=== PATIENT | female | born 1975 | race Caucasian/White ===

== ENCOUNTER 2016-09-15 20:45 | Emergency (ER) | payer OTHER ==
--- NOTE | 2016-09-15 20:53 | EDPHY ---
H & P Time Seen by Provider: 09/15/16 20:49 HPI/ROS: CHIEF COMPLAINT: Medication reaction HISTORY OF PRESENT ILLNESS: The patient is a 41-year-old female, brought in by EMS, after accidently smoking her Seroquel. The patient states she went home to smoke marijuana. She states she has picked up one of her Seroquel pills from the floor and put it in her marijuana container so her children wouldn't see it. She later smoked the marijuana which had the Seroquel in it. According to the patient's the patient is very forgetful and often scattered. He thinks this is something normal that the patient would do because she is very disorganized. Patient reports it was an accident. She denies suicidal ideation. REVIEW OF SYSTEMS: A comprehensive 10 point review of systems is otherwise negative aside from elements mentioned in the history of present illness. Past Medical/Surgical History: Depression. Insomnia. Social History: with three children. Marijuana use. 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 Physical Exam: General Appearance: Alert, anxious Eyes: Pupils equal and round, no conjunctival pallor or injection ENT, Mouth: Mucous membranes moist Neck: Normal inspection Respiratory: Lungs are clear to auscultation Cardiovascular: Regular rate and rhythm Gastrointestinal: Abdomen is soft and non-tender Neurological: A&O, nonfocal exam Skin: Warm and dry, no rash Extremities: Nontender, no pedal edema Psychiatric: Fluctuating affect Constitutional: Initial Vital Signs Temperature (C) 36.4 C 09/15/16 20:45 Heart Rate 87 09/15/16 20:45 Respiratory Rate 16 09/15/16 20:45 Blood Pressure 133/90 H 09/15/16 20:45 O2 Sat (%) 100 09/15/16 20:45 O2 Delivery Mode Room Air Allergies/Adverse Reactions: iodine [Iodine] Allergy (Verified 04/03/09 02:33) Penicillins Allergy (Verified 04/03/09 02:33) Home Medications: Medication Instructions Recorded Adderall 20 mg tab 04/03/09 Lexapro 09/15/16 Seroquel 09/15/16 Medical Decision Making ED Course/Re-evaluation: This patient presents with anxiety after smoking marijuana. It is unclear whether she actually inhaled any of the Seroquel tablet. There is no evidence of intentional self-harm or acute toxicity from Seroquel. I feel that she is safe and stable for discharge home. Differential Diagnosis: Includes though not limited to intentional overdose, Seroquel toxicity, primary anxiety. - Data Points Medications Given: Discontinued Medications Acetaminophen (Tylenol) 1,000 mg PO EDNOW ONE Stop: 09/15/16 21:25 Last Admin: 09/15/16 21:24 Dose: 1,000 mg Departure - Departure Disposition: Home, Routine, Self-Care Clinical Impression: Marijuana use Condition: Good Instructions: Medicinal Use of Cannabis (ED) Additional Instructions: Return to the Emergency Department with new or worsening symptoms. You have been referred to a primary care physician below, followup as necessary. Referrals: Rebecca Mckeon MD [Medical Doctor] - As per Instructions (Primary Care Physician) Report Scribed for: Flores Bowens Report Scribed by: Samantha Andres Date of Report: 09/15/16 Time of Report: 20:52 Physician Review and Approval Statement: 09/15/16 20:52 Portions of this note were transcribed by a medical csr. I personally performed the history, physical exam, and medical decision-making; and confirmed the accuracy of the information in the transcribed note.
[2016-09-15 21:10] VITALS: RESP 16; TEMP 97.5
[2016-09-15] MEDS ORDERED: ACETAMINOPHEN 500 MG TAB ONE (21:21)
[2016-09-15] MEDS ORDERED: ACETAMINOPHEN 500 MG TAB PO ONE (21:24)
[2016-09-15 22:21] VITALS: BP 137/106; PULSE 90; O2SAT 96
== END 2016-09-15 22:20 | disposition home or self-care (01) ==
LOC: EDUNIT#
DX: F12.90 Cannabis use, unspecified, uncomplicated (principal)

== ENCOUNTER 2018-05-10 05:14 | Emergency (ER) | payer OTHER ==
[2018-05-10] MEDS ORDERED: methylPREDNISolone SOD SUCC 125 MG/2 ML VIAL ONE (05:35)
[2018-05-10] MEDS ORDERED: FAMOTIDINE 20 MG/2 ML SDV ONE (05:36)
[2018-05-10] MEDS ORDERED: FAMOTIDINE 20 MG/NACL 50 ML IV ONE (05:49)
[2018-05-10] MEDS ORDERED: methylPREDNISolone SOD SUCC 125 MG/2 ML VIAL IVP ONE (05:50)
--- NOTE | 2018-05-10 05:54 | EDPHY ---
H & P Stated Complaint: allergic reaction/ syncope since 1999 Time Seen by Provider: 05/10/18 05:23 HPI/ROS: HPI The patient presents with hives which began at 8:00 p.m. Last night after eating dinner at a [place] restaurant. She has had them several times before though cannot trace them to any clear exposure, medication. She took Benadryl 75 mg immediately with a dose of her nighttime trazodone. She went to sleep and then awoke up at 2:30 a.m. With ongoing itching. She took another is 75 mg of Benadryl. She also took trazodone. She awoke just prior to arrival and walked to the bathroom. When she was leaving the bathroom she began to feel lightheaded and fell forward, hitting the bridge of her nose of a corner of a door. She lost consciousness. This was witnessed by her . She is also complaining of nausea currently without vomiting. She is no longer feeling lightheaded. She does not have any shortness of breath, difficulty swallowing. 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 In previous instances her hives were brought out by stress she believes. REVIEW OF SYSTEMS 10 systems were reviewed and negative with the exception of the elements mentioned in the history of present illness. 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 PHYSICAL General Appearance: Alert, no distress Eyes: Pupils equal and round no pallor or injection ENT, Mouth: Nasal bridge is edematous with obvious deformity, there is a 1 cm transverse very superficial laceration to the nasal bridge, Mucous membranes moist, no posterior pharyngeal edema or erythema Respiratory: There are no retractions, lungs are clear to auscultation Cardiovascular: Regular rate and rhythm Gastrointestinal: Abdomen is soft and non-tender, no masses, bowel sounds normal Neurological: A&O, moves all extremities Skin: Warm and dry, diffuse urticaria, most prominently on her hips, periorbital erythema is present Musculoskeletal: Neck is supple non tender Extremities: symmetrical, full range of motion Psychiatric: Patient is oriented X 3, there is no agitation Source: Patient Exam Limitations: No limitations - Personal History Current Tetanus/Diphtheria Vaccine: Yes - Medical/Surgical History Hx Asthma: No Hx Chronic Respiratory Disease: No Hx Diabetes: No Hx Cardiac Disease: No Hx Renal Disease: No Hx Cirrhosis: No Hx Alcoholism: No Hx HIV/AIDS: No Hx Splenectomy or Spleen Trauma: No Other PMH: depression - Social History Smoking Status: Current every day smoker Constitutional: Initial Vital Signs Temperature (C) 36.4 C 05/10/18 05:15 Heart Rate 67 05/10/18 05:15 Respiratory Rate 14 05/10/18 05:15 Blood Pressure 81/65 L 05/10/18 05:15 O2 Sat (%) 100 05/10/18 05:15 O2 Delivery Mode Room Air Allergies/Adverse Reactions: iodine [Iodine] Allergy (Verified 05/10/18 05:14) Penicillins Allergy (Verified 05/10/18 05:14) Home Medications: Medication Instructions Recorded Wellbutrin Sr 05/10/18 predniSONE [Prednisone] 40 mg PO DAILY 4 Days tablet 05/10/18 traZODone 05/10/18 Medical Decision Making - Diagnostics EKG Interpretation: EKG: Complete interpretation has been separately recorded in the [facility] archive. Summary impression: Normal sinus rhythm Differential Diagnosis: 43-year-old female with history of recurrent urticaria presents with urticaria which began last night, initially taking Benadryl 75 mg at 8:00 p.m., then again at 2:30 a.m., waking up approximately 2 hr later, walking to the bathroom and had what sounds to be a syncopal event, hitting her nose on the corner of a door. Here, she does have diffuse urticaria despite her Benadryl use. I will treat her with Pepcid and Solu-Medrol as well. She does not have any posterior pharyngeal erythema or edema, no wheezing, no vomiting. She did have a syncopal episode, however I am not sure if this qualifies her for anaphylaxis as this was after using the bathroom and taking large amounts of Benadryl. She does appear to have a nasal bone fracture, the remainder of her facial bones are nontender. I will not perform facial CT at this time. I will refer her to ENT and have provided her with ice packs. Her nasal bridge laceration is very superficial and does not require repair. Her syncopal episode I suspect is vasovagal. However, I will check EKG. EKG was unremarkable. Patient felt better after receiving IV fluids and well enough to go home. I have advised her to continue Benadryl, will add on Pepcid and prednisone. We discussed return precautions. - Data Points Medications Given: Discontinued Medications Famotidine (Pepcid) 20 mg IVP EDNOW ONE Stop: 05/10/18 05:58 Last Admin: 05/10/18 05:59 Dose: 20 mg Famotidine/Sodium Chloride (Pepcid 20 Mg (Premix)) 50 mls @ 200 mls/hr IV EDNOW ONE Stop: 05/10/18 06:03 Last Admin: 05/10/18 06:07 Dose: Not Given Methylprednisolone Sodium Succinate (Solu-Medrol) 125 mg IVP EDNOW ONE Stop: 05/10/18 05:51 Last Admin: 05/10/18 05:57 Dose: 125 mg Departure - Departure Disposition: Home, Routine, Self-Care Clinical Impression: Urticaria, Syncope, Nasal bone fracture Condition: Good Instructions: Prednisone (By mouth), Nasal Fracture (ED), Urticaria (ED), Syncope (ED) Additional Instructions: Please make sure to drink plenty of fluids. You should take Benadryl 25 mg every 6 hr as needed until the hives improved. You can also take famotidine 20 mg twice a day. Please use an ice pack on her nose for 20 min at a time several times a day. I have referred you to the ENT doctor on-call, you can make an appointment to be seen within the next few days for a check of your nose. Return to the emergency department if worse in any way. Referrals: Olayinka Garcia MD [Medical Doctor] - As per Instructions Prescriptions: predniSONE [Prednisone] 40 mg PO DAILY 4 Days tablet
[2018-05-10] MEDS ORDERED: FAMOTIDINE 20 MG/2 ML SDV IVP ONE (05:57)
[2018-05-10 07:52] VITALS: BP 100/75
--- NOTE | 2018-05-11 06:20 | CPEKG ---
Test Reason : OPEN Blood Pressure : / mmHG Vent. Rate : 081 BPM Atrial Rate : 082 BPM P-R Int : 156 ms QRS Dur : 078 ms QT Int : 404 ms P-R-T Axes : 073 077 074 degrees QTc Int : 469 ms Sinus rhythm Confirmed by Viola Roe ([id number]) on 05/11/2018 6:20:13 AM Referred By: Viola Roe Confirmed By:Viola Roe
== END 2018-05-10 08:02 | disposition home or self-care (01) ==
DX: S02.2XXA Fracture of nasal bones, initial encounter for closed fracture (principal); L50.9 Urticaria, unspecified; R55 Syncope and collapse; W01.198A Fall on same level from slipping, tripping and stumbling with subsequent striking against other object, initial encounter; Y92.002 Bathroom of unspecified non-institutional (private) residence as the place of occurrence of the external cause; Y99.9 Unspecified external cause status; Y93.9 Activity, unspecified
CPT/HCPCS: 96374; J2930